=== PATIENT | male | born 1985 ===

== ENCOUNTER → 2016-07-18 | Outpatient (CLI) | payer BC ==
[~2016-07-18] VITALS: Ht 190.5 cm; Wt 81.2 kg
[~2016-07-18] MED LIST: APIX5TAB PO
[2016-07-18 12:40] VITALS: BP 125/73
== END | disposition home or self-care (01) ==
LOC: SRCNTR 12:29
PROVIDERS: ATTEND Internal Medicine
DX: I26.99 Other pulmonary embolism without acute cor pulmonale (principal)
CPT/HCPCS: G0463